=== PATIENT | female | born 2000 | race Caucasian/White ===

== ENCOUNTER 2022-08-24 05:31 | Outpatient (CLI) | payer OTHER ==
[~2022-08-24] VITALS: Ht 167.7 cm; Wt 87.3 kg
[2022-08-31] MEDS ORDERED: ACHD5005 PO (20:58)
[2022-08-31] MEDS ORDERED: IBUP-844 PO (20:58)
[2022-08-31] MEDS ORDERED: DOCU100C37 PO (20:58)
== END 2022-08-24 13:20 ==
LOC: PREOP 05:31
PROVIDERS: ATTEND Obstetrics & Gynecology
DX: Z01.818 Encounter for other preprocedural examination (principal)

== ENCOUNTER 2022-08-31 05:34 | Inpatient (IN) | payer OTHER ==
[2022-08-31] VITALS (12 sets, daily range): BP systolic 97–127; BP diastolic 64–97
[~2022-08-31] VITALS: Ht 169 cm; Wt 88.2 kg
[2022-08-31] MEDS ORDERED: ceFAZolin INJECTION 1,000 MG in NS (IVPB) 50 ML IV ONE (05:45)
[2022-08-31] MEDS ORDERED: CITRIC ACID/SOB CIT (BICITRA) 30 ML UDC ONE (05:59)
[2022-08-31] MEDS ORDERED: FAMOTIDINE 20MG/2ML IV (PEPCID) ONE (05:59)
[2022-08-31] MEDS ORDERED: METOCLOPRAMIDE INJ 10 MG/2 ML (REGLAN) ONE (05:59)
[2022-08-31] MEDS ORDERED: CITRIC ACID/SOB CIT (BICITRA) 30 ML UDC PO ONE (06:00)
[2022-08-31] MEDS ORDERED: CATHETER FLUSH 10 ML SYR IV PRN (06:00)
[2022-08-31] MEDS ORDERED: LACTATED RINGERS 1,000 ML IV PRN (06:00)
[2022-08-31] MEDS ORDERED: METOCLOPRAMIDE INJ 10 MG/2 ML (REGLAN) IV ONE (06:00)
[2022-08-31] MEDS ORDERED: FAMOTIDINE 20MG/2ML IV (PEPCID) IV ONE (06:00)
[2022-08-31 06:10] LABS: HEMOGLOBIN 12.6 g/dL (11.5-16.0)
[2022-08-31 06:12] LABS: BASOPHILS % (AUTO) 0 % (0-10); EOSINOPHILS # (AUTO) 0.1 10^3/uL (0.0-0.3); EOSINOPHILS % (AUTO) 1 % (0-10); HEMATOCRIT 38 % (35-52); LYMPHOCYTES # (AUTO) 2.4 10^3/uL (1.0-4.0); LYMPHOCYTES % (AUTO) 16 % (12-44); MEAN CORPUSCULAR HEMOGLOBIN 28 pg (25-34); MEAN CORPUSCULAR HGB CONC 33 g/dL (32-36); MEAN CORPUSCULAR VOLUME 85 fL (80-99); MEAN PLATELET VOLUME 13.8 fL (9.0-12.2); MONOCYTES # (AUTO) 1.1 10^3/uL (0.0-1.0); MONOCYTES % (AUTO) 7 % (0-12); NEUTROPHILS # (AUTO) 11.1 10^3/uL (1.8-7.8); NEUTROPHILS % (AUTO) 74 % (42-75); PLATELET COUNT 156 10^3/uL (130-400); WHITE BLOOD COUNT 14.9 10^3/uL (4.3-11.0)
[2022-08-31 06:21] LABS: ALBUMIN 3.4 GM/DL (3.2-4.5); POTASSIUM 3.9 MMOL/L (3.6-5.0)
[2022-08-31 06:22] LABS: CALCIUM 9.3 MG/DL (8.5-10.1)
[2022-08-31 06:23] LABS: TOTAL PROTEIN 6.8 GM/DL (6.4-8.2)
[2022-08-31 06:25] LABS: BILIRUBIN,TOTAL 0.3 MG/DL (0.1-1.0)
[2022-08-31 06:27] LABS: CREATININE SERUM 0.59 MG/DL (0.60-1.30)
[2022-08-31 06:37] LABS: BAND NEUTROPHILS 1 %; LYMPHOCYTES % (MANUAL) 17 %; MONOCYTES % (MANUAL) 4 %; NEUTROPHILS % (MANUAL) 78 %
[2022-08-31] MEDS ORDERED: OXYTOCIN PRE-MIX DRIP 1,000 ML IV ONE (06:53)
[2022-08-31] MEDS ORDERED: fentaNYL INJ 100 MCG/2 ML AMP ONE (06:53)
[2022-08-31] MEDS ORDERED: BUPIVACAINE 0.5% 30 ML (SENSORCAINE) VIAL ONE (06:53)
[2022-08-31] MEDS ORDERED: TETANUS,DIPTH,PERTUSS P/F (BOOSTRIX) 0.5 ML VIAL IM SCH (07:15)
[2022-08-31] MEDS ORDERED: OXYTOCIN PRE-MIX DRIP 500 ML IV SCH (07:15)
[2022-08-31] MEDS ORDERED: NALOXONE 0.4 MG/ML 1 ML (NARCAN) VIAL IV PRN (07:15)
[2022-08-31] MEDS ORDERED: MEASLES,MUMPS,RUBELLA 1 EA INJ SC SCH (07:15)
[2022-08-31] MEDS ORDERED: ONDANSETRON 4 MG/2 ML (SDV) Z0FRAN IVP PRN (07:15)
--- NOTE | 2022-08-31 07:25 | History & Physical-OB ---
OB - Chief Complaint & HPI Date/Time Date of Admission: Date of Admission: Aug 31, 2022 at 05:34 Date seen by a Provider: Aug 31, 2022 Time Seen by a Provider: 07:15 Chief Complaint/History OB-Reason for Admission/Chief: Section Hx : 2 Hx Para: 0 Expected Date of Delivery: Aug 31, 2022 Gestational Age in Weeks: 39 Gestational Age in Days: 0 Indication for : other (intolerance of pelvic exam, patient elects to primary ) Admission Nurse Assessment Rev: Yes History of Labs O pos Antibody neg RI RPR NR HBsAg NR HIV NR GBS neg Allergies and Home Medications Allergies Coded Allergies: No Known Drug Allergies (Unverified , 08/24/22) Patient Home Medication List Home Medication List Reviewed: Yes No Active Prescriptions or Reported Meds OB - History Hx of Present Care: Yes Ultrasounds: Normal mid trimester US Obstetrical Complications: None Medical Complications: None Delivery History Adverse Rxn to Tranfusion: No Patient Past Medical History nc Social History/Family History 2nd Hand Smoke Exposure: No Immunizations Influenza Vaccine Up-to-Date: No; Not Current First/Initial COVID19 Vaccine: NONE Hepatitis A: Yes Hepatitis B: Yes Tetanus Booster (TDap): Less than 5yrs OB - Admission Exam Physical Exam Vitals: Vital Signs 08/31/22 06:23 Temp 36.6 Pulse 75 Resp 18 Pulse Ox 98 O2 Delivery Room Air HEENT: NCAT Heart: Rhythm Normal Lungs: Clear Abdomen: Gravid Extremities: Normal Reflexes: Normal Heart Rate: 130's Accelerations: Accelerations Present Decelerations: No Decelerations Short Term Variability: Present Fpc Variability: Average (6-25) Contractions on Admission: >10 Minutes Apart Intensity: Mild Labs Laboratory Tests Test 08/31/22 05:50 Range/Units White Blood Count 14.9 H 4.3-11.0 10^3/uL Red Blood Count 4.50 3.80-5.11 10^6/uL Hemoglobin 12.6 11.5-16.0 g/dL Hematocrit 38 35-52 % Mean Corpuscular Volume 85 80-99 fL Mean Corpuscular Hemoglobin 28 25-34 pg Mean Corpuscular Hemoglobin Concent 33 32-36 g/dL Red Cell Distribution Width 13.7 10.0-14.5 % Platelet Count 156 130-400 10^3/uL Mean Platelet Volume 13.8 H 9.0-12.2 fL Immature Granulocyte % (Auto) 1 % Neutrophils (%) (Auto) 74 42-75 % Lymphocytes (%) (Auto) 16 12-44 % Monocytes (%) (Auto) 7 0-12 % Eosinophils (%) (Auto) 1 0-10 % Basophils (%) (Auto) 0 0-10 % Neutrophils # (Auto) 11.1 H 1.8-7.8 10^3/uL Lymphocytes # (Auto) 2.4 1.0-4.0 10^3/uL Monocytes # (Auto) 1.1 H 0.0-1.0 10^3/uL Eosinophils # (Auto) 0.1 0.0-0.3 10^3/uL Basophils # (Auto) 0.0 0.0-0.1 10^3/uL Immature Granulocyte # (Auto) 0.2 H 0.0-0.1 10^3/uL Neutrophils % (Manual) 78 % Lymphocytes % (Manual) 17 % Monocytes % (Manual) 4 % Band Neutrophils 1 % Percent Immature Platelet Fraction 18.1 H 0.0-7.6 % Sodium Level 135 135-145 MMOL/L Potassium Level 3.9 3.6-5.0 MMOL/L Chloride Level 108 H 98-107 MMOL/L Carbon Dioxide Level 16 L 21-32 MMOL/L Anion Gap 11 5-14 MMOL/L Blood Urea Nitrogen 6 L 7-18 MG/DL Creatinine 0.59 L 0.60-1.30 MG/DL Estimat Glomerular Filtration Rate 131 BUN/Creatinine Ratio 10 Glucose Level 88 70-105 MG/DL Calcium Level 9.3 8.5-10.1 MG/DL Corrected Calcium 9.8 8.5-10.1 MG/DL Total Bilirubin 0.3 0.1-1.0 MG/DL Aspartate Amino Transf (AST/SGOT) 14 5-34 U/L Alanine Aminotransferase (ALT/SGPT) 9 0-55 U/L Alkaline Phosphatase 161 H 40-136 U/L Total Protein 6.8 6.4-8.2 GM/DL Albumin 3.4 3.2-4.5 GM/DL OB - Assessment/Plan/Diagnosis Assessment Assessment: section Admission Dx 21 yo @ 39 weeks Vulvadynia, Vagismus Primary Admission Status: Inpatient Order (span 2 midnights) Reason for Inpatient Admission: Primary Plan Plan: Section ALE CORDOVA DO Aug 31, 2022 07:25
[2022-08-31] MEDS ORDERED: PHENYLEPHRINE 100 MCG/ML 10 ML (ANESTHESIA) SYR ONE (07:52)
[2022-08-31] MEDS: KETOROLAC 30 MG/ML VIAL IV SCH ×3 (10:32→21:56)
[2022-08-31] MEDS: DOCUSATE SODIUM 100 MG (COLACE) CAP PO SCH ×2 (10:32→21:55)
[2022-08-31] MEDS: HYDROcodone/APAP 5 MG/325 MG (LORTAB) TAB PO PRN ×2 (12:15→19:27)
--- NOTE | 2022-08-31 13:42 | OPERATIVE REPORT ---
PREOPERATIVE DIAGNOSES: 1. A 21-year-old at 39 weeks' gestation. 2. Severe vulvodynia and vaginismus. 3. Intolerance of pelvic exam. POSTOPERATIVE DIAGNOSES: 1. A 21-year-old at 39 weeks' gestation. 2. Severe vulvodynia and vaginismus. 3. Intolerance of pelvic exam. PROCEDURE: Primary low transverse section. SURGEON: Inder Cordova DO [employer]OUN[employer] EQUIPMENT MECHANIC: Altagracia Alva DNP was necessary for manipulation and retraction throughout the procedure. ANESTHESIA: Spinal. ESTIMATED BLOOD LOSS: 500 mL URINE OUTPUT: 50 mL clear at the end of the procedure. FLUIDS: 1200 mL lactated Ringer's solution. FINDINGS: A live male weighing 7 pounds 8 ounces, Apgars 8 and 9. Grossly normal appearing uterus, bilateral fallopian tubes and ovaries. SPECIMEN SENT: None. INDICATIONS FOR PROCEDURE: This 21-year-old female was a patient who had sought care in my office. She had a transfer of care during the second trimester, she had [ ] of the previous physician to proceed with primary due to intolerance of pelvic examinations. She wished to proceed with this plan of care. I discussed with the patient the risk of versus the risk of vaginal delivery and how it is always recommended vaginal delivery we attempted first. The patient despite all these risks, still wished to proceed with the operative course. The risks of the procedure in detail was discussed with the patient in detail including risk of bleeding, infection, damage to surrounding structures including but not limited to bowel, bladder, ureter, kidneys, possible need for operation, postoperative complications that may occur, recovery timeframe, risk from anesthesia and even . After everything was discussed with the patient in detail, a consent was obtained, the patient was taken to the operating room. OPERATIVE DESCRIPTION IN DETAIL: Once in the operating room, where spinal analgesia was found to be adequate, was placed in supine position with leftward tilt, prepped and draped in normal sterile fashion. A timeout was performed. Anesthesia was tested. I then made a Pfannenstiel skin incision with a knife and carried underlying fascia using Bovie cautery. The fascial incision extended laterally using Bovie cautery. Superior aspect of fascial incision was then grasped with Kirsten clamps, tented up and dissected off the underlying rectus muscles. The inferior aspect of fascial incision was then grasped with Kirsten clamps, tented up and dissected off the underlying rectus muscles. The rectus muscles were dissected down the midline sharply, which exposed the peritoneum, which I entered bluntly and extended using blunt traction. Dj ring retractor was placed in the peritoneal incision, which offers excellent lateral sidewall retraction. I identified lower uterine segment, was found to be thinned out and make a low transverse incision in the vesicouterine peritoneum and bluntly dissected off the lower uterine segment, creating a bladder flap and then proceeded with my myotomy until membranes were visualized, at which point I extended the uterine incision laterally and superiorly using bandage scissors. Amniotomy was then performed using Allis clamp. Clear fluid was noted. was found in vertex presentation. With gentle fundal pressure, the infant's head was elevated up the incision where was delivered through the incision, the nares and oropharynx were bulb suctioned. Anterior and posterior shoulders were delivered. was brought to the operative field. The cord was doubly clamped and cut and infant was handed off to waiting nurses in attendance. Cord blood was collected. Three-vessel cord intact placenta delivered spontaneously thereafter. IV Pitocin was initiated to facilitate uterine contraction. Uterine fundus confirmed by manual massage. The uterus was exteriorized and cleared of all endometrial clots and debris. I then proceeded with closing the uterine incision using 0 Vicryl suture in a running locked fashion. Second imbricating 0 Monocryl was placed. Excellent hemostasis was noted after doing this. I then placed the uterus back in the pelvis and copiously irrigated the pelvis using normal saline. Once again, there was no active bleeding noted from any of my dissection planes. I placed Interceed antiadhesive over my low transverse incision. I removed the Jd ring retractor and then proceeded to close the peritoneum using 3-0 Vicryl suture in a running fashion. Rectus muscles were reapproximated using 3-0 Vicryl suture in interrupted fashion. The fascia was reapproximated using 0 Vicryl suture in a running fashion. Subcutaneous tissue was reapproximated using 3-0 plain interrupted subcutaneous stitch and skin reapproximated using 4-0 Monocryl running subcuticular. Dermabond was applied to incision, sterile dressing with adhesive white tape. The patient tolerated the procedure well and sent to recovery area in stable condition. Lap and sponge counts were correct at the end of the procedure. Instrument counts correct as well. Two grams of Ancef were given preoperatively for infection prophylaxis. Job ID: [id number] DocumentID: [id number] Dictated Date: 08/31/2022 08:52:00 Resource Recovery Specialist Date: 08/31/2022 13:41:00 Dictated By: INDER CORDOVA DO
[2022-08-31] MEDS ORDERED: CATHETER FLUSH 10 ML SYR IV SCH (14:00)
--- NOTE | 2022-08-31 20:57 | Discharge Inst-Women's Service ---
Discharge Inst-Women's Serv Depart Medication/Instructions New, Converted or Re-Newed RX: Transmitted to Pharmacy Final Diagnosis POD 2 PLTCS Problems Reviewed?: Yes Consults/Follow Up Additional Follow Up: Yes Orders/Referrals Dr. Kaplan in 7-10 days and in 6 weeks Activity Activity: Activity as Tolerated Driving Instructions: No Driving for 1 Week NO SMOKING: NO SMOKING Nothing Inside Vagina: No Douching, No [place], No Tampons Diet Discharge Diet: No Restrictions Symptoms to Report to : Bleeding Excessive, Pain Increased, Fever Over 101 Degrees F, Vaginal Bleeding Increase, Questions/Concerns For Any Problems or Questions: Contact Your Physician Skin/Wound Care Infection Signs and Symptoms: Increased Redness, Foul Odor of Wound, Increased Drainage, Skin Itchy or Has a Rash, Increased Swelling, Temperature Above 101 F Operative Area Clean and Dry: Keep Incision Clean/Dry Stitches/[place]/Dermabond: Dermabond, Care of Stitches Bathing Instructions: ALE Bowie DO Aug 31, 2022 20:57
[2022-08-31] MEDS ORDERED: IBUP-844 PO (20:58)
[2022-08-31] MEDS ORDERED: ACHD5005 PO (20:58)
[2022-08-31] MEDS ORDERED: DOCU100C37 PO (20:58)
[2022-09-01] VITALS: BP 103/65
[2022-09-01] MEDS: HYDROcodone/APAP 5 MG/325 MG (LORTAB) TAB PO PRN ×4 (01:38→21:55)
[2022-09-01 04:15] VITALS: BP 115/65
[2022-09-01] MEDS: KETOROLAC 30 MG/ML VIAL IV SCH (04:21)
[2022-09-01 05:35] LABS: BASOPHILS % (AUTO) 0 % (0-10); HEMATOCRIT 33 % (35-52); MEAN CORPUSCULAR VOLUME 85 fL (80-99)
[2022-09-01 05:36] LABS: EOSINOPHILS # (AUTO) 0.2 10^3/uL (0.0-0.3); EOSINOPHILS % (AUTO) 1 % (0-10); HEMOGLOBIN 10.6 g/dL (11.5-16.0); LYMPHOCYTES # (AUTO) 2.1 10^3/uL (1.0-4.0); LYMPHOCYTES % (AUTO) 16 % (12-44); MEAN CORPUSCULAR HEMOGLOBIN 28 pg (25-34); MEAN CORPUSCULAR HGB CONC 32 g/dL (32-36); MEAN PLATELET VOLUME 13.6 fL (9.0-12.2); MONOCYTES % (AUTO) 8 % (0-12); NEUTROPHILS # (AUTO) 9.5 10^3/uL (1.8-7.8); NEUTROPHILS % (AUTO) 74 % (42-75); PLATELET COUNT 120 10^3/uL (130-400); WHITE BLOOD COUNT 12.8 10^3/uL (4.3-11.0)
[2022-09-01 05:40] LABS: SMEAR SCAN COMMENT YES
[2022-09-01 07:45] VITALS: BP 119/74
[2022-09-01] MEDS: DOCUSATE SODIUM 100 MG (COLACE) CAP PO SCH ×2 (07:55→21:54)
--- NOTE | 2022-09-01 08:10 | Postpartum Progress Note ---
Note Note Day # 1 Subjective: Patient is without complaints. Ambulating, voiding. Tolerating a regular diet without nausea or vomiting. Normal lochia. Pain is well controlled with oral pain medications. Objective: Physical Exam: General - Alert and oriented, no apparent distress Abdomen - Soft, appropriately tender to palpation, non-distended, fundus firm at umbilicus Extremities - no edema, negative Rhianna's bilaterally Incision- c/d/i Assessment: POD 1 PLTCS Acute blood loss anemia Plan: Routine care. Encourage breast feeding. Encourage ambulation. Ferrous sulfate supplementation. Plan for discharge tomorrow Vitals - Labs Vital Signs - I&O Vital Signs Date Time Temp Pulse Resp B/P (MAP) Pulse Ox O2 Delivery O2 Flow Rate FiO2 09/01/22 04:15 36.3 76 18 115/65 (82) 97 Room Air 09/01/22 00:00 36.6 99 18 103/65 (78) Room Air 08/31/22 20:00 36.9 102 18 117/64 (81) 97 Room Air 08/31/22 16:16 37.0 98 18 119/78 (92) Room Air 08/31/22 11:49 36.6 73 20 118/67 (84) 97 Room Air 08/31/22 10:32 36.4 83 20 127/77 (94) 97 Room Air 08/31/22 09:16 Room Air 08/31/22 09:16 36.2 14 120/77 (91) 98 Room Air 08/31/22 09:10 14 114/97 (103) 98 Room Air 08/31/22 09:05 Room Air 08/31/22 09:00 26 118/83 (95) 98 Room Air 08/31/22 08:55 Room Air 08/31/22 08:50 19 114/74 (87) 98 Room Air 08/31/22 08:40 18 103/71 (82) 97 Room Air 08/31/22 08:40 Room Air 08/31/22 08:30 16 102/64 (77) 97 Room Air 08/31/22 08:25 36.2 16 97/75 (82) 97 Room Air 08/31/22 08:25 Room Air I & O 09/01/22 06:59 Intake Total 3250 ml Output Total 2100 ml Balance 1150 ml Labs Laboratory Tests 09/01/22 05:17: White Blood Count 12.8H, Red Blood Count 3.83, Hemoglobin 10.6L, Hematocrit 33L, Mean Corpuscular Volume 85, Mean Corpuscular Hemoglobin 28, Mean Corpuscular Hemoglobin Concent 32, Red Cell Distribution Width 13.9, Platelet Count 120L, Mean Platelet Volume 13.6H, Immature Granulocyte % (Auto) 1, Neutrophils (%) (Auto) 74, Lymphocytes (%) (Auto) 16, Monocytes (%) (Auto) 8, Eosinophils (%) (Auto) 1, Basophils (%) (Auto) 0, Neutrophils # (Auto) 9.5H, Lymphocytes # (Auto) 2.1, Monocytes # (Auto) 1.0, Eosinophils # (Auto) 0.2, Basophils # (Auto) 0.0, Immature Granulocyte # (Auto) 0.1, Percent Immature Platelet Fraction 15.3H , Smear Scan YES ALE CORDOVA DO Sep 01, 2022 08:10
[2022-09-01] MEDS: IBUPROFEN 600 MG (MOTRIN) TAB PO SCH ×3 (10:09→21:55)
[2022-09-01 13:30] VITALS: BP 111/68
--- NOTE | 2022-09-01 15:04 | Anesthesia-Regional Post-Op ---
Regional Patient Condition Mental Status: Alert, Oriented x3 Circulation: Same as Pre-Op Headache: Absent Sensation: Full Recovery Motor Block: Absent Post Op Complications Complications None Follow Up Care/Instructions Patient Instructions None needed. Anesthesia/Patient Condition Patient was seen this morning and she was ambulating and doing well, no complaints, stable vital signs, no apparent adverse anesthesia problems. No complications reported per nursing. ALICE SINGH DO Sep 01, 2022 15:04
[2022-09-01 16:03] VITALS: BP 124/68
[2022-09-01 21:55] VITALS: BP 125/81
[2022-09-02 05:00] VITALS: BP 123/77
[2022-09-02] MEDS: IBUPROFEN 600 MG (MOTRIN) TAB PO SCH ×2 (05:00→11:29)
[2022-09-02] MEDS: HYDROcodone/APAP 5 MG/325 MG (LORTAB) TAB PO PRN (05:00)
--- NOTE | 2022-09-02 07:20 | Postpartum Progress Note ---
Note Note Day # 2 Subjective: Patient is without complaints. Ambulating, voiding. Tolerating a regular diet without nausea or vomiting. Normal lochia. Pain is well controlled with oral pain medications. Objective: Physical Exam: General - Alert and oriented, no apparent distress Abdomen - Soft, appropriately tender to palpation, non-distended, fundus firm at umbilicus Extremities - no edema, negative Rhianna's bilaterally Incision- c/d/i Assessment: POD 2 PLTCS Acute blood loss anemia Plan: Routine care. Encourage breast feeding. Encourage ambulation. Ferrous sulfate supplementation. Plan for discharge today Vitals - Labs Vital Signs - I&O Vital Signs Date Time Temp Pulse Resp B/P (MAP) Pulse Ox O2 Delivery O2 Flow Rate FiO2 09/02/22 05:00 36.3 86 18 123/77 (92) 98 Room Air 09/01/22 21:55 36.5 96 18 125/81 (96) 98 Room Air 09/01/22 16:03 36.2 80 18 124/68 (86) 98 Room Air 09/01/22 13:30 36.7 87 18 111/68 (82) 97 Nasal Cannula 09/01/22 07:45 36.9 86 18 119/74 (89) 97 Room Air I & O 09/02/22 07:00 Intake Total 1200 ml Balance 1200 ml ALE CORDOVA DO Sep 02, 2022 07:20
[2022-09-02 09:30] VITALS: BP 108/65
[2022-09-02] MEDS: DOCUSATE SODIUM 100 MG (COLACE) CAP PO SCH (09:54)
[2022-09-02 16:00] VITALS: BP 124/81
[2022-09-02 16:30] VITALS: BP 124/81
== END 2022-09-02 16:30 | disposition home or self-care (01) | DRG 787 ==
LOC: LDRP 05:34
PROVIDERS: ADMIT Obstetrics & Gynecology; ATTEND Obstetrics & Gynecology
PROC: 10D00Z1 Extraction of Products of Conception, Low, Open Approach (ICD-10-PCS; principal; 2022-09-01)
DX: O99.892 Other specified diseases and conditions complicating childbirth (principal); N94.2 Vaginismus; N94.819 Vulvodynia, unspecified; Z37.0 Single live birth; Z3A.39 39 weeks gestation of pregnancy; D62 Acute posthemorrhagic anemia; O90.81 Anemia of the puerperium
CPT/HCPCS: 36415; 80053; 85007; 85025; 85027; 86850; 86900; 86901; 94664